=== PATIENT | female | born 1950 | race Caucasian/White ===

== ENCOUNTER 2021-06-27 12:31 | Emergency (ER) | payer OTHER ==
[2021-06-27 12:50] VITALS: BP 133/76; PULSE 94; TEMP 97.8; BMI 24.7
[2021-06-27] MEDS ORDERED: SODIUM CHLORIDE 0.9% 500 ML INFUS.BAG IV ONE (13:36)
[2021-06-27] MEDS ORDERED: LACTATED RINGERS SOLUTION 1000 ML INFUS.BAG IV ONE (13:36)
[2021-06-27 15:56] LABS: BASO % 0.9 % (0-2.0); EOS % 1.1 % (0-4.5); HEMATOCRIT 34.1 % (32.4-45.2); HEMOGLOBIN 11.1 GM/dL (10.7-15.3); LYMPH % 22.8 % (8-40); MCH 27.1 pg (25.7-33.7); MCHC 32.4 g/dl (32.0-36.0); MEAN CELL VOLUME 83.5 fl (80-96); MEAN PLT VOLUME 7.9 fl (7.5-11.1); MONO % 6.9 % (3.8-10.2); NEUT % 68.3 % (42.8-82.8); PLATELET COUNT 321 10^3/uL (134-434); RBC 4.09 M/mm3 (3.60-5.2); RDW 15.7 % (11.6-15.6); WHITE BLOOD COUNT 14.8 K/mm3 (4.0-10.0)
[2021-06-27 16:18] LABS: ALBUMIN 3.4 g/dl (3.4-5.0); BLOOD UREA NITROGEN 35.9 mg/dL (7-18); CALCIUM 9.7 mg/dL (8.5-10.1)
[2021-06-27 16:21] LABS: CREATININE 1.1 mg/dL (0.55-1.3); PHOSPHOROUS 4.9 mg/dL (2.5-4.9)
[2021-06-27 16:22] LABS: BILIRUBIN,TOTAL 0.2 mg/dL (0.2-1)
[2021-06-27 18:13] LABS: EPI CELLS 2 /uL (0-25.1); HYALINE CASTS 1 /uL (0-3.1); URINE APPEARANCE CLOUDY; URINE BACTERIA 719 /uL (0-1359); URINE BILIRUBIN NEGATIVE (NEGATIVE); URINE COLOR YELLOW; URINE GLUCOSE (UA) 3+ (NEGATIVE); URINE KETONE NEGATIVE (NEGATIVE); URINE LEUK ESTERASE 3+ (NEGATIVE); URINE NITRITE NEGATIVE (NEGATIVE); URINE PROTEIN NEGATIVE (NEGATIVE); URINE RBC 23 /uL (0-23.9); URINE UROBILINOGEN 0.2 mg/dL (0.2-1.0); URINE WBC 2603 /uL (0-25.8)
== END 2021-06-27 19:15 | disposition home or self-care (01) ==
LOC: JER 12:31
DX: R53.1 Weakness (principal); E86.0 Dehydration; R19.7 Diarrhea, unspecified
CPT/HCPCS: 36415; 71045-TC-FY; 80053; 81003; 83605; 83690; 83735; 84100; 84484; 85025; 87086; 93005; 93010; 99285-25; C9803-CS; U0003; U0005

== ENCOUNTER 2024-02-11 19:42 | Emergency (ER) | payer OTHER ==
[2024-02-11 20:59] VITALS: RESP 16; BMI 24.7
[2024-02-11] MEDS ORDERED: LIDOCAINE PATCH REMOVAL MC SCH (22:00)
[2024-02-11 22:14] LABS: VENOUS BASE EXCESS -10.8 mmol/L (-2-2); VENOUS O2 SATURATION 42.5 % (70-80); VENOUS PCO2 31.8 mmHg (38-52); VENOUS PH 7.285 (7.310-7.410)
[2024-02-11 22:20] LABS: BASO % 0.2 % (0-2.0); EOS % 0.2 % (0-4.5); HEMOGLOBIN 9.1 GM/dL (10.7-15.3); LYMPH % 5.4 % (8-40); MCH 26.3 pg (25.7-33.7); MCHC 30.3 g/dl (32.0-36.0); MEAN CELL VOLUME 86.6 fl (80-96); MEAN PLT VOLUME 8.4 fl (7.5-11.1); MONO % 5.6 % (3.8-10.2); NEUT % 88.6 % (42.8-82.8); PLATELET COUNT 198 10^3/uL (134-434); RBC 3.47 M/mm3 (3.60-5.2); RDW 38.6 % (11.6-15.6); WHITE BLOOD COUNT 20.3 K/mm3 (4.0-10.0)
[2024-02-11 22:26] LABS: ADD RBC MORPHOLOGY YES
[2024-02-11 22:28] LABS: INR 1.05 (0.83-1.09); PROTHROMBIN TIME (PATIENT) 11.8 SEC (9.7-13.0)
[2024-02-11 22:37] LABS: POTASSIUM 4.8 mmol/L (3.5-5.1)
[2024-02-11 22:39] LABS: ALBUMIN 2.1 g/dl (3.4-5.0); BLOOD UREA NITROGEN 61.5 mg/dL (7-18); CALCIUM 8.5 mg/dL (8.5-10.1)
[2024-02-11 22:43] LABS: CREATININE 1.5 mg/dL (0.55-1.3)
[2024-02-11 22:44] LABS: BILIRUBIN,TOTAL 0.4 mg/dL (0.2-1); TOT PROT 5.4 g/dl (6.4-8.2)
[2024-02-11 22:54] LABS: ANISOCYTOSIS 3+; MACROCYTOSIS 0; OVALOCYTE 1+; TEAR DROP CELLS 1+
[2024-02-11] MEDS ORDERED: ACETAMINOPHEN INJECTION 100 ML ONE (23:32)
[2024-02-11] MEDS ORDERED: LIDOCAINE 4% PATCH TP ONE (23:32)
[2024-02-11] MEDS ORDERED: PIPERACILLIN/TAZOB 4.5 GM 4.5 GM/100 ML BAG IVPB ONE (23:32)
[2024-02-11] MEDS: PIPERACILLIN/TAZOB 4.5 GM 4.5 GM in DEXTROSE 5%-WATER 100 ML IVPB ONE (23:43)
[2024-02-11] MEDS: VANCOMYCIN 1,000 MG in DEXTROSE 5%-WATER - 250 ML IVPB ONE (23:43)
[2024-02-11] MEDS: LACTATED RINGERS SOLUTION 1000 ML INFUS.BAG IV ONE (23:44)
[2024-02-11] MEDS: LIDOCAINE 4% PATCH TP ONE (23:44)
[2024-02-11] MEDS: ACETAMINOPHEN 1000 MG/100 ML BAG IVPB ONE (23:45)
[2024-02-12] MEDS ORDERED: VANCOMYCIN 1 GM PREMIX (F) 1 GM/200 ML BAG ONE (00:58)
[2024-02-12] MEDS ORDERED: diazePAM 2 MG TABLET ONE (01:31)
[2024-02-12] MEDS: SODIUM CHLORIDE 0.9% 500 ML INFUS.BAG IV ONE ×2 (01:39→03:06)
[2024-02-12] MEDS: diazePAM 2 MG TABLET PO ONE (01:40)
[2024-02-12] MEDS ORDERED: AZITHROMYCIN IVPB 500 MG/250 ML BAG IVPB ONE (02:13)
[2024-02-12] MEDS: AZITHROMYCIN IVPB 500 MG in DEXTROSE 5%-WATER - 250 ML IVPB ONE (02:19)
[2024-02-12] MEDS ORDERED: LACTATED RINGERS SOLUTION 1000 ML INFUS.BAG IV ONE (03:00)
[2024-02-12 03:06] VITALS: BP 84/40; PULSE 85; TEMP 97.6
== END 2024-02-12 03:27 | disposition short-term general hospital (02) ==
LOC: JER 19:42
PROC: 3E03329 Introduction of Other Anti-infective into Peripheral Vein, Percutaneous Approach (ICD-10-PCS; 2024-02-11)
PROC: 3E03329 Introduction of Other Anti-infective into Peripheral Vein, Percutaneous Approach (ICD-10-PCS; 2024-02-11)
PROC: 3E033NZ Introduction of Analgesics, Hypnotics, Sedatives into Peripheral Vein, Percutaneous Approach (ICD-10-PCS; 2024-02-11)
PROC: 3E03329 Introduction of Other Anti-infective into Peripheral Vein, Percutaneous Approach (ICD-10-PCS; principal; 2024-02-12)
DX: S81.801A Unspecified open wound, right lower leg, initial encounter (principal); S81.802A Unspecified open wound, left lower leg, initial encounter; N17.9 Acute kidney failure, unspecified; E11.52 Type 2 diabetes mellitus with diabetic peripheral angiopathy with gangrene; E86.0 Dehydration; R07.89 Other chest pain; W06.XXXA Fall from bed, initial encounter; Z20.822 Contact with and (suspected) exposure to COVID-19
CPT/HCPCS: 0241U-QW; 36415; 70450-TC; 71045-TC-FY; 71250-TC; 72125-TC; 72170-TC-FY; 73610-TC-LT-FY; 73610-TC-RT-FY; 73630-TC-LT; 73630-TC-RT-FY; 74176-TC; 80053; 82550; 82803; 83605; 84484; 85025; 85610; 85730; 86850; 86870; 86880; 86900; 86901; 86902; 87040; 93005; 93010; 96365; 96367; 96368; 96375; 99285-25; J0131